=== PATIENT | male | born 1965 | race Caucasian/White ===

== ENCOUNTER 2018-03-06 17:07 | Inpatient (IN) | payer MEDICARE, MEDICAID ==
[~2018-03-06] VITALS: Ht 175.3 cm; Wt 73.3 kg
[~2018-03-06 17:07] MED LIST: COR3 PO; ENAL2.5T39 PO; FURO-151 PO; FURO-152 PO; WARF2TAB57 PO
[2018-03-06] MEDS ORDERED: SODIUM CHLORIDE 0.9% 1,000 ML IV ONE (17:44)
[2018-03-06 18:48] LABS: PROTHROMBIN TIME 10.5 sec (9.1-11.1)
[2018-03-06 18:49] LABS: BASOPHILS % 0.4 % (0.0-2.0); EOSINOPHILS % 1.2 % (0.0-5.0); HEMATOCRIT. 47.1 % (42.0-52.0); HEMOGLOBIN. 15.7 g/dL (14.0-18.0); LYMPHOCYTES % 11.9 % (20.0-50.0); MEAN CORPUSCULAR HEMOGLOBIN 28.9 pg (28.0-32.0); MEAN CORPUSCULAR VOLUME 86.8 fL (80.0-94.0); MEAN PLATELET VOLUME 8.5 fl (7.4-10.4); MONOCYTES % 6.4 % (2.0-8.0); NEUTROPHILS % 80.1 % (40.0-76.0); PLATELET 231 x1000/uL (130-400); RED BLOOD CELL COUNT 5.43 mill/uL (4.7-6.1); RED CELL DISTRIBUTION WIDTH 13.3 % (11.6-14.6)
[2018-03-06 18:57] LABS: CHLORIDE 103 mEq/L (98-107)
[2018-03-06 19:00] LABS: ETHANOL BLOOD < 10 mg/dL
[2018-03-06] MEDS ORDERED: SODIUM CHLORIDE 0.9% 1000ML BAG (SEPSIS BOLUS) IV ONE (19:30)
[2018-03-06] MEDS ORDERED: DIPHENHYDRAMINE 50MG/ML VIAL IV PRN (20:45)
[2018-03-06] MEDS ORDERED: CLONIDINE 0.1MG TABLET PO PRN (20:45)
[2018-03-06] MEDS ORDERED: ACETAMINOPHEN 325MG TABLET PO PRN (20:45)
[2018-03-06] MEDS ORDERED: HYDROCODONE/APAP 7.5/325MG 1 TAB TABLET PO PRN (20:45)
[2018-03-06] MEDS ORDERED: IPRATROPIUM/ALBUTEROL 0.5-3(2.5)MG/3ML NEB INH PRN (20:45)
[2018-03-06] MEDS ORDERED: DOCUSATE SODIUM 100MG CAPSULE PO PRN (20:45)
[2018-03-06] MEDS ORDERED: ONDANSETRON HCL 4MG/2ML INJ IV PRN (20:45)
[2018-03-06] MEDS ORDERED: GUAIFENESIN 200MG/10ML SUGAR FREE UDC PO PRN (20:45)
[2018-03-06] MEDS ORDERED: MAGNESIUM/ALUMINUM HYDROXIDE/SIMETHICONE 30ML UDC PO PRN (20:45)
[2018-03-06] MEDS ORDERED: LORAZEPAM 2MG/ML CPJ IV PRN (20:45)
[2018-03-06] MEDS ORDERED: NA PHOS,M-B/NA PHOS,DI-BA ENEMA 118ML PR PRN (20:45)
[2018-03-06 22:18] LABS: CLARITY URINE CLEAR (CLEAR); COLOR URINE YELLOW (YELLOW); KETONES URINE NEGATIVE (NEGATIVE); LEUKOCYTE ESTERASE URINE NEGATIVE (NEGATIVE); NITRITE URINE NEGATIVE (NEGATIVE); OCCULT BLOOD URINE NEGATIVE (NEGATIVE); PH URINE 6.5 (4.5-8.0); PROTEIN URINE NEGATIVE (NEGATIVE); SPECIFIC GRAVITY URINE 1.006 (1.005-1.030); UROBILINOGEN URINE 0.2 E.U./dL (0.2-1.0)
[2018-03-06 22:29] LABS: *AMPHETAMINES SCREEN URINE NEGATIVE (NEGATIVE); *BARBITURATES SCREEN URINE NEGATIVE (NEGATIVE)
[2018-03-06 22:30] LABS: *BENZODIAZEPINES SCREEN URINE NEGATIVE (NEGATIVE); *COCAINE SCREEN URINE NEGATIVE (NEGATIVE); CANNABINOID URINE SCREEN PRESUMTIVE POSITIVE (NEGATIVE); METHADONE URINE SCREEN NEGATIVE (NEGATIVE); OPIATES URINE SCREEN NEGATIVE (NEGATIVE); PHENCYCLIDINE URINE SCREEN NEGATIVE (NEGATIVE)
[2018-03-06] MEDS: SODIUM CHLORIDE 0.9% INJ 3ML FLUSH IVF SCH ×2 (22:48→23:50)
[2018-03-07] MEDS ORDERED: METF500S7 PO (00:32)
[2018-03-07] MEDS ORDERED: GABA-531 PO (00:32)
[2018-03-07] MEDS ORDERED: ATOR20TA PO (00:32)
[2018-03-07] MEDS ORDERED: CARV25TA47 PO (00:32)
[2018-03-07] MEDS ORDERED: LISI10TA5 PO (00:32)
[2018-03-07] MEDS ORDERED: LEVO50TA8 PO (00:32)
[2018-03-07] MEDS ORDERED: HYDROMORPHONE HCL/PF 2MG/ML CPJ IV PRN (00:35)
[2018-03-07 00:59] LABS: INR 1.1; PROTHROMBIN TIME 10.7 sec (9.1-11.1)
[2018-03-07 01:00] VITALS: BP 120/81
[2018-03-07] MEDS: LORAZEPAM 2MG/ML CPJ IV PRN ×2 (01:21→20:27)
[2018-03-07 01:31] VITALS: BP 120/81
[2018-03-07 04:00] VITALS: BP 155/92
[2018-03-07 06:58] LABS: BASOPHILS % 0.5 % (0.0-2.0); EOSINOPHILS % 0.7 % (0.0-5.0); HEMATOCRIT. 42.5 % (42.0-52.0); HEMOGLOBIN. 14.3 g/dL (14.0-18.0); LYMPHOCYTES % 22.4 % (20.0-50.0); MEAN CORPUSCULAR HEMOGLOBIN 29.2 pg (28.0-32.0); MEAN CORPUSCULAR VOLUME 86.7 fL (80.0-94.0); MEAN PLATELET VOLUME 9.3 fl (7.4-10.4); MONOCYTES % 8.7 % (2.0-8.0); NEUTROPHILS % 67.7 % (40.0-76.0); PLATELET 210 x1000/uL (130-400); RED CELL DISTRIBUTION WIDTH 13.5 % (11.6-14.6)
[2018-03-07 06:59] LABS: CHLORIDE 108 mEq/L (98-107)
[2018-03-07 07:10] LABS: T4 FREE 1.19 ng/dL (0.76-1.46)
[2018-03-07] MEDS ORDERED: WARFARIN SODIUM 2MG TABLET PO SCH (09:00)
[2018-03-07 12:00] VITALS: BP 138/79
[2018-03-07] MEDS ORDERED: INFLUENZA VIRUS VACCINE(AFLURIA) 0.5ML SYR IM ONE (12:00)
[2018-03-07] MEDS ORDERED: PNEUMOCOCCAL 23-VAL P-SAC VAC 0.5 ML IM ONE (12:00)
[2018-03-07] MEDS ORDERED: DEXTROSE 50% WATER 50ML SYRINGE IV PRN (12:30)
[2018-03-07] MEDS: ASPIRIN 81MG EC TABLET PO SCH (12:46)
[2018-03-07] MEDS: BLOOD SUGAR DIAGNOSTIC STRIP TEST SCH ×3 (12:52→21:00)
[2018-03-07] MEDS: INSULIN LISPRO 100 UNITS/ML SUBCUT SCH ×3 (12:53→21:00)
[2018-03-07] MEDS: ENOXAPARIN 40MG/0.4ML SYR SUBCUT SCH (13:00)
[2018-03-07] MEDS: SODIUM CHLORIDE 0.9% INJ 3ML FLUSH IVF SCH ×2 (14:00→22:30)
[2018-03-07 16:00] VITALS: BP 128/79
[2018-03-07] MEDS: LEVETIRACETAM 500MG TABLET PO SCH (20:26)
[2018-03-08] MEDS: SODIUM CHLORIDE 0.9% INJ 3ML FLUSH IVF SCH (05:14)
[2018-03-08 08:00] VITALS: BP 136/96
[2018-03-08] MEDS: BLOOD SUGAR DIAGNOSTIC STRIP TEST SCH ×2 (08:04→13:38)
[2018-03-08] MEDS: INSULIN LISPRO 100 UNITS/ML SUBCUT SCH ×2 (08:06→13:10)
[2018-03-08] MEDS: ASPIRIN 81MG EC TABLET PO SCH (09:09)
[2018-03-08] MEDS: LEVETIRACETAM 500MG TABLET PO SCH (09:09)
[2018-03-08 11:45] VITALS: BP 130/90
[2018-03-08 11:59] VITALS: BP 130/90
[2018-03-08] MEDS: ENOXAPARIN 40MG/0.4ML SYR SUBCUT SCH (14:19)
== END 2018-03-08 14:24 | disposition home or self-care (01) | DRG 101 ==
LOC: ER 17:07 → 7WST 20:19 → EDBEDREQ 20:23 → EDBEDREQTM 20:23 → ENRESERV 23:44
PROVIDERS: ADMIT Internal Medicine; ATTEND Internal Medicine
DX: G40.89 Other seizures (principal); I69.354 Hemiplegia and hemiparesis following cerebral infarction affecting left non-dominant side; E78.5 Hyperlipidemia, unspecified; D72.829 Elevated white blood cell count, unspecified; E03.9 Hypothyroidism, unspecified; E11.9 Type 2 diabetes mellitus without complications; F17.210 Nicotine dependence, cigarettes, uncomplicated; I10 Essential (primary) hypertension; Z79.01 Long term (current) use of anticoagulants; Z79.84 Long term (current) use of oral hypoglycemic drugs; Z88.0 Allergy status to penicillin; I69.398 Other sequelae of cerebral infarction
CPT/HCPCS: 36415; 71045; 80305; 82962; 83605; 84439; 84443; 84484; 90686; 90732; 93005; 96360; 96361; 99285; G0482; J1200; J1650; J2060; J7030

== ENCOUNTER 2023-11-24 21:43 | Emergency (ER) | payer MEDICAID, MEDICARE ==
[~2023-11-24] VITALS: Ht 165.1 cm; Wt 68.0 kg
[~2023-11-24 21:43] MED LIST changes: +ATOR20TA PO; +CARV25TA47 PO; +GABA-532 PO; +LEVO50TA8 PO; +LISI10TA26 PO; +METF500S9 PO
[2023-11-24 21:45] VITALS: BP 144/97; PULSE 94; RESP 15; TEMP 98.3; O2SAT 96
== END 2023-11-25 04:51 | disposition left against medical advice (07) ==
LOC: ER 21:43
DX: S09.90XA Unspecified injury of head, initial encounter (principal); E78.00 Pure hypercholesterolemia, unspecified; I10 Essential (primary) hypertension; G93.89 Other specified disorders of brain; Z86.73 Personal history of transient ischemic attack (TIA), and cerebral infarction without residual deficits; Z79.899 Other long term (current) drug therapy; W18.39XA Other fall on same level, initial encounter; Y93.89 Activity, other specified; Y92.89 Other specified places as the place of occurrence of the external cause; Y99.8 Other external cause status
CPT/HCPCS: 99284